=== PATIENT | female | born 1945 | race Caucasian/White ===

== ENCOUNTER 2016-05-17 15:00 | Outpatient (RCR) | payer OTHER | END 2016-06-15 | disposition home or self-care (01) | LOC: PTY 15:00 | DX: M25.562 Pain in left knee (principal); M79.605 Pain in left leg; M25.551 Pain in right hip; Z91.81 History of falling; Z88.0 Allergy status to penicillin; Z91.048 Other nonmedicinal substance allergy status; M17.0 Bilateral primary osteoarthritis of knee; M84.469A Pathological fracture, unspecified tibia and fibula, initial encounter for fracture; X58.XXXA Exposure to other specified factors, initial encounter; Y93.9 Activity, unspecified; Y92.9 Unspecified place or not applicable ==

== ENCOUNTER 2016-06-25 15:45 | Outpatient (RCR) | payer OTHER | END 2016-07-15 | disposition home or self-care (01) | LOC: PTY 15:45 | DX: M84.469A Pathological fracture, unspecified tibia and fibula, initial encounter for fracture (principal); M17.0 Bilateral primary osteoarthritis of knee ==

== ENCOUNTER 2016-07-16 14:00 | Outpatient (RCR) | payer OTHER | END 2016-08-15 | disposition home or self-care (01) | LOC: PTY 14:00 | DX: M84.469A Pathological fracture, unspecified tibia and fibula, initial encounter for fracture (principal); M17.0 Bilateral primary osteoarthritis of knee ==

== ENCOUNTER 2016-08-27 13:45 | Outpatient (RCR) | payer OTHER | END 2016-09-14 | disposition home or self-care (01) | LOC: PTY 13:45 | DX: M54.5 Low back pain (principal); M84.469A Pathological fracture, unspecified tibia and fibula, initial encounter for fracture; M17.0 Bilateral primary osteoarthritis of knee ==

== ENCOUNTER 2016-09-20 12:55 | Outpatient (RCR) | payer OTHER | END 2016-10-15 | disposition home or self-care (01) | LOC: PTY 12:55 | DX: M54.5 Low back pain (principal); M17.0 Bilateral primary osteoarthritis of knee; M84.469D Pathological fracture, unspecified tibia and fibula, subsequent encounter for fracture with routine healing ==

== ENCOUNTER 2016-11-12 14:00 | Outpatient (RCR) | payer OTHER | END 2016-11-15 | disposition home or self-care (01) | LOC: PTY 14:00 | DX: M54.5 Low back pain (principal); M17.0 Bilateral primary osteoarthritis of knee; M84.469D Pathological fracture, unspecified tibia and fibula, subsequent encounter for fracture with routine healing; X58.XXXD Exposure to other specified factors, subsequent encounter ==

== ENCOUNTER 2016-12-10 12:53 | Outpatient (RCR) | payer OTHER | END 2016-12-15 | disposition home or self-care (01) | LOC: PTY 12:53 | DX: M54.5 Low back pain (principal) ==

== ENCOUNTER 2017-01-07 13:49 | Outpatient (RCR) | payer OTHER | END 2017-01-15 | disposition home or self-care (01) | LOC: PTY 13:49 | DX: M54.5 Low back pain (principal); G89.29 Other chronic pain ==

== ENCOUNTER 2017-02-11 13:49 | Outpatient (RCR) | payer OTHER | END 2017-02-14 | disposition home or self-care (01) | LOC: PTY 13:49 | DX: M54.5 Low back pain (principal); G89.29 Other chronic pain; M54.2 Cervicalgia; M79.1 Myalgia ==

== ENCOUNTER 2017-02-26 14:00 | Outpatient (RCR) | payer OTHER | END 2017-03-17 | disposition home or self-care (01) | LOC: PTY 14:00 | DX: M54.5 Low back pain (principal); G89.29 Other chronic pain; M54.2 Cervicalgia; M79.1 Myalgia ==

== ENCOUNTER 2017-03-13 14:00 | Outpatient (RCR) | payer OTHER | END 2017-03-17 | disposition home or self-care (01) | LOC: PTY 14:00 | DX: M54.2 Cervicalgia (principal); M54.40 Lumbago with sciatica, unspecified side; G89.29 Other chronic pain; M79.7 Fibromyalgia ==

== ENCOUNTER 2017-04-15 13:00 | Outpatient (RCR) | payer OTHER | END 2017-04-17 | disposition home or self-care (01) | LOC: PTY 13:00 | DX: M54.2 Cervicalgia (principal); M54.40 Lumbago with sciatica, unspecified side ==

== ENCOUNTER 2017-04-22 14:40 | Outpatient (RCR) | payer OTHER | END 2017-05-15 | disposition home or self-care (01) | LOC: PTY 14:40 | DX: M54.2 Cervicalgia (principal); M54.40 Lumbago with sciatica, unspecified side ==

== ENCOUNTER 2017-05-20 14:00 | Outpatient (RCR) | payer OTHER | END 2017-06-15 | disposition home or self-care (01) | LOC: PTY 14:00 | DX: M54.2 Cervicalgia (principal); M54.40 Lumbago with sciatica, unspecified side ==

== ENCOUNTER 2017-06-19 12:30 | Outpatient (RCR) | payer OTHER | END 2017-07-15 | disposition home or self-care (01) | LOC: PTY 12:30 | DX: M25.572 Pain in left ankle and joints of left foot (principal); M54.2 Cervicalgia; M54.40 Lumbago with sciatica, unspecified side ==

== ENCOUNTER 2017-07-22 13:55 | Outpatient (RCR) | payer OTHER | END 2017-08-15 | disposition home or self-care (01) | LOC: PTY 13:55 | DX: M25.572 Pain in left ankle and joints of left foot (principal); M54.2 Cervicalgia; M54.40 Lumbago with sciatica, unspecified side ==

== ENCOUNTER 2017-09-06 09:40 | Outpatient (RCR) | payer OTHER | END 2017-09-14 | disposition home or self-care (01) | LOC: PTY 09:40 | DX: M25.572 Pain in left ankle and joints of left foot (principal) ==

== ENCOUNTER 2017-09-16 12:50 | Outpatient (RCR) | payer OTHER | END 2017-10-15 | disposition home or self-care (01) | LOC: PTY 12:50 | DX: M25.572 Pain in left ankle and joints of left foot (principal) ==

== ENCOUNTER 2017-11-20 11:00 | Outpatient (RCR) | payer OTHER | END 2017-12-15 | disposition home or self-care (01) | LOC: PTY 11:00 | DX: M25.572 Pain in left ankle and joints of left foot (principal) ==

== ENCOUNTER 2017-12-18 12:55 | Outpatient (RCR) | payer OTHER | END 2018-01-15 | disposition home or self-care (01) | LOC: PTY 12:55 | DX: M25.572 Pain in left ankle and joints of left foot (principal) ==